=== PATIENT | female | born 2000 | race Two or more races ===

== ENCOUNTER 2022-05-07 18:39 | Emergency (ER) | payer MEDICAID, OTHER ==
[~2022-05-07] VITALS: Ht 162.6 cm; Wt 68.1 kg
[2022-05-08] MEDS ORDERED: PENICILLIN G BENZ 1200000 UNITS/2 ML SYRG IM ONE
[2022-05-08] MEDS ORDERED: DexAMETHasone SOD PHOS 10MG/1ML VIAL INJ IM ONE
[2022-05-08 01:26] VITALS: BP 121/72
== END 2022-05-08 03:33 | disposition home or self-care (01) ==
LOC: ER 18:39
DX: J02.0 Streptococcal pharyngitis (principal); Z20.822 Contact with and (suspected) exposure to COVID-19
CPT/HCPCS: 36415; 87426; 87880; 96372; 99284; J0561; J1100